=== PATIENT | male | born 1960 | race Hispanic/Latino ===

== ENCOUNTER 2017-12-23 09:28 | Emergency (ER) | payer OTHER ==
[2017-12-23 09:33] VITALS: BMI 29.5
[2017-12-23 09:37] VITALS: RESP 18; TEMP 97.8
--- NOTE | 2017-12-23 09:50 | ED PDOC ---
Arrival/HPI - General Chief Complaint: Lower Extremity Problem/Injury Time Seen by Provider: 12/23/17 09:46 Historian: Patient - History of Present Illness Narrative History of Present Illness (Text): 12/23/17 09:46 57 year old male, no significant pmh, nkda, complaining of request gonorrhea/ chlamydia prophylatic treatment. Pt. stated that he had unprotected sex last week, concerning about gonorrhea and chlamydia, request prophylatic treatment, no burning pain, no rash, no testicular pain, no palpitation, no other medical or psychological complaints. Past Medical History - Provider Review Nursing Documentation Reviewed: Yes - Infectious Disease Hx of Infectious Diseases: None - Psychiatric Hx Substance Use: No - Anesthesia Hx Anesthesia: No Family/Social History - Physician Review Nursing Documentation Reviewed: Yes Family/Social History: Unknown Family HX Smoking Status: Never Smoked Hx Alcohol Use: Yes Frequency of alcohol use: Few days per week Hx Substance Use: No Allergies/Home Meds Allergies/Adverse Reactions: Allergies No Known Allergies Allergy (Verified 12/23/17 09:33) Home Medications: Home Meds Medication Instructions Recorded Confirmed No Known Home Med 12/23/17 12/23/17 Review of Systems - Review of Systems Constitutional: absent: Fatigue, Fevers Eyes: absent: Vision Changes ENT: absent: Hearing Changes Respiratory: absent: SOB, Cough Cardiovascular: absent: Chest Pain Gastrointestinal: absent: Abdominal Pain, Nausea, Vomiting Musculoskeletal: absent: Arthralgias, Back Pain Skin: absent: Rash, Pruritis Neurological: absent: Headache, Dizziness Psychiatric: absent: Anxiety, Depression, Suicidal Ideation Physical Exam Vital Signs Reviewed: Yes Vital Signs Temp Pulse Resp BP Pulse Ox 12/23/17 09:37 97.8 F 66 18 137/86 98 Temperature: Afebrile Blood Pressure: Normal Pulse: Regular Respiratory Rate: Normal Appearance: Positive for: Well-Appearing, Non-Toxic, Comfortable Pain Distress: None Mental Status: Positive for: Alert and Oriented X 3 - Systems Exam Head: Present: Atraumatic, Normocephalic Pupils: Present: PERRL Extroacular Muscles: Present: EOMI Conjunctiva: Present: Normal Mouth: Present: Moist Mucous Membranes Neck: Present: Normal Range of Motion Respiratory/Chest: Present: Clear to Auscultation, Good Air Exchange. No: Respiratory Distress, Accessory Muscle Use Cardiovascular: Present: Regular Rate and Rhythm, Normal S1, S2. No: Murmurs Abdomen: No: Tenderness, Distention, Peritoneal Signs Genitourinary Male: Present: Other (Pt. declined) Back: Present: Normal Inspection Upper Extremity: Present: Normal Inspection. No: Cyanosis, Edema Lower Extremity: Present: Normal Inspection. No: Edema Neurological: Present: GCS=15, CN II-XII Intact, Speech Normal Skin: Present: Warm, Dry, Normal Color. No: Rashes Psychiatric: Present: Alert, Oriented x 3, Normal Insight, Normal Concentration Medical Decision Making ED Course and Treatment: 12/23/17 09:57 -Pt. refused HIV and STD testing, only request for the treatment for gonorrhea and chlamydia, rocephine and azithromycin ordered. -Pt. has no urinary symptoms. -Discharge home with education on stay hydrated, notify all your sexual partners for the STD test and prophylatic treatment, follow up with your own pmd within 2 days, return to the ER for any new or worsening signs or symptoms. - PA / [employer] / Resident Statement / has reviewed & agrees with the documentation as recorded. Disposition/Present on Arrival - Present on Arrival Any Indicators Present on Arrival: No History of DVT/PE: No History of Uncontrolled Diabetes: No Urinary Catheter: No History of Decub. Ulcer: No History Surgical Site Infection Following: None - Disposition Have Diagnosis and Disposition been Completed?: Yes Diagnosis: Examination, medical, general Disposition: HOME/ ROUTINE Disposition Time: 09:59 Patient Plan: Discharge Condition: GOOD Additional Instructions: -Discharge home with education on stay hydrated, notify all your sexual partners for the STD test and prophylatic treatment, follow up with your own pmd within 2 days, return to the ER for any new or worsening signs or symptoms. Please use condoms in the future. Referrals: [facility] at [facility] [place] [Outside] - Follow up with primary Forms: WORK NOTE
[2017-12-23] MEDS ORDERED: cefTRIAXone (Rocephin) 250 mg Inj IM STA (09:52)
[2017-12-23 10:48] VITALS: BP 135/77; PULSE 82; O2SAT 100
== END 2017-12-23 10:39 | disposition home or self-care (01) ==
LOC: ED 09:28
DX: Z04.8 Encounter for examination and observation for other specified reasons (principal)
CPT/HCPCS: 96372; 99283; J0696